=== PATIENT | female | born 1960 | race Caucasian/White ===

== ENCOUNTER 2016-12-16 09:51 | Emergency (ER) | payer MEDICAID ==
[2016-12-16] MEDS ORDERED: NORMAL SALINE 1000 ML 1,000 ML IV ONE ×2 (10:17→10:25)
[2016-12-16] MEDS ORDERED: ONDANSETRON HCL INJ/PF 4 MG/2 ML SDV IV ONE ×2 (10:17→13:46)
[2016-12-16] MEDS ORDERED: MORPHINE SULFATE 10 MG/ML INJ IV ONE ×3 (10:19→20:50)
[2016-12-16 10:29] LABS: ABSOLUTE LYMPHOCYTES (AUTO) 0.9 10^3/uL (0.5-4.7); ABSOLUTE MONOCYTES (AUTO) 0.6 10^3/uL (0.1-1.4); ABSOLUTE NEUT (AUTO) 6.6 10^3/uL (1.7-8.2); BASOPHILS % (AUTO) 0.3 % (0-2); EOSINOPHILS % (AUTO) 0.5 % (0-6); HEMATOCRIT 45.5 % (36.0-47.0); HEMOGLOBIN 15.7 g/dL (12.0-15.5); HGB HCT DIFFERENCE 1.6; LYMPHOCYTES % (AUTO) 10.7 % (13-45); MEAN CORPUSCULAR HEMOGLOBIN 31.8 pg (27.0-33.4); MEAN CORPUSCULAR HGB CONC 34.6 g/dL (32.0-36.0); MEAN CORPUSCULAR VOLUME 92 fl (80-97); MONOCYTES % (AUTO) 7.1 % (3-13); RED BLOOD COUNT 4.94 10^6/uL (3.72-5.28); RED CELL DISTRIBUTION WIDTH 13.2 % (11.5-14.0); SEGMENTED NEUTROPHILS % (AUTO) 81.4 % (42-78); WHITE BLOOD COUNT 8.1 10^3/uL (4.0-10.5)
[2016-12-16 12:07] LABS: ALANINE AMINOTRANSFERASE 50 U/L (9-52); ALBUMIN 3.8 g/dL (3.5-5.0); ALKALINE PHOSPHATASE 66 U/L (38-126); ANION GAP 14 (5-19); ASPARTATE AMINO TRANSFERASE 35 U/L (14-36); BILIRUBIN,DIRECT 0.3 mg/dL (0.0-0.4); BILIRUBIN,TOTAL 0.6 mg/dL (0.2-1.3); BLOOD UREA NITROGEN 26 mg/dL (7-20); CALCIUM 9.4 mg/dL (8.4-10.2); CARBON DIOXIDE 30 mmol/L (22-30); CHLORIDE 95 mmol/L (98-107); CREATININE RESULT 0.98 mg/dL (0.52-1.25); GLUCOSE 122 mg/dL (75-110); LIPASE 96.8 U/L (23-300); POTASSIUM 4.2 mmol/L (3.6-5.0); SODIUM 138.6 mmol/L (137-145); TOTAL PROTEIN 6.6 g/dL (6.3-8.2)
[2016-12-16] MEDS ORDERED: LIDOCAINE 1% INJ-PF (10 MG/ML) 30 ML SDV NEB ONE (13:06)
[2016-12-16] MEDS ORDERED: PHARMACY COMMUNICATION ORDER MC NR (13:15)
[2016-12-16 13:56] LABS: APPEARANCE,URINE SLIGHTLY-CLOUDY; BILIRUBIN,URINE NEGATIVE (NEGATIVE); GLUCOSE, URINE NEGATIVE (NEGATIVE); KETONES,URINE TRACE mg/dL (NEGATIVE); LEUKOCYTE ESTERASE,URINE NEGATIVE (NEGATIVE); NITRITE,URINE NEGATIVE (NEGATIVE); PROTEIN,URINE 30 mg/dL (NEGATIVE); URINE SPECIFIC GRAVITY 1.059; UROBILINOGEN,URINE NEGATIVE mg/dL (<2.0)
--- NOTE | 2016-12-16 15:22 | ER Document Report ---
ED General - General Chief Complaint: Abdominal Pain Stated Complaint: ABDOMINAL PAIN TRAVEL OUTSIDE OF THE [place] IN LAST 30 DAYS: No - HPI Patient complains to provider of: abdominal pain Notes: Patient coming in for abdominal pain. Patient is currently postop day 4 from lysis of adhesions performed at [facility]. Patient has multiple abdominal surgeries in the past due to her [employer]NA[employer] cancer. Patient states that she was doing fine discharged home after having a meal last night with Benadryl tonight with abdominal distention nausea vomiting. Patient has a history of obstructions in the past. States feels like her obstructions in the past. Patient states was passing gas to is morning is currently has not had a flatus. Patient also states small bowel movement earlier today however has not had a bowel movement in quite some time. Denies fever - Related Data Allergies/Adverse Reactions: celecoxib [From Celebrex] Allergy (Mild, Verified 12/16/16 09:58) latex [Latex] Allergy (Unknown, Verified 12/16/16 09:58) Penicillins Allergy (Unknown, Verified 12/16/16 09:58) tramadol [Tramadol] Allergy (Unknown, Verified 12/16/16 09:58) Sulfa (Sulfonamide Antibiotics) Allergy (Verified 12/16/16 09:58) steroids Adverse Reaction (Uncoded 12/16/16 09:58) "Brittle bones" Past Medical History - Social History Smoking Status: Unknown if Ever Smoked Family History: Reviewed & Not Pertinent, Other Pulmonary Medical History: Reports: Hx Asthma, Hx Bronchitis, Hx COPD Neurological Medical History: Reports: Hx Seizures Renal/ Medical History: Denies: Hx Peritoneal Dialysis Malignancy Medical History: Reports: Hx Ovarian Cancer GI Medical History: Reports: Hx Crohn's Disease Psychiatric Medical History: Reports: Hx Attention Deficit Hyperactivity Disorder, Hx Bipolar Disorder, Hx Depression Past Surgical History: Reports: Hx Abdominal Surgery - x 7, Hx Appendectomy, Hx Section, Hx Gynecologic Surgery - left ovary removed, Hx Hysterectomy - Immunizations Immunizations up to date: Yes Hx Diphtheria, Pertussis, Tetanus Vaccination: Yes Review of Systems - Review of Systems Constitutional: No symptoms reported EENT: No symptoms reported Cardiovascular: No symptoms reported Respiratory: No symptoms reported Gastrointestinal: Abdomen distended, Abdominal pain, Diarrhea, Nausea, Vomiting Genitourinary: No symptoms reported Female Genitourinary: No symptoms reported Musculoskeletal: No symptoms reported Skin: No symptoms reported Hematologic/Lymphatic: No symptoms reported Neurological/Psychological: No symptoms reported -: Yes All other systems reviewed and negative Physical Exam - Vital signs Vitals: Temp Pulse Resp BP Pulse Ox 97.8 F 120 H 24 H 175/92 H 100 12/16/16 09:55 12/16/16 09:55 12/16/16 09:55 12/16/16 09:55 12/16/16 09:55 Interpretation: Normal - General General appearance: Appears well, Alert - HEENT Head: Normocephalic, Atraumatic Eyes: Normal Pupils: PERRL - Respiratory Respiratory status: No respiratory distress Chest status: Nontender Breath sounds: Normal Chest palpation: Normal - Cardiovascular Rhythm: Regular Heart sounds: Normal auscultation Murmur: No - Abdominal Inspection: Normal Distension: Distended Bowel sounds: Normal Tenderness: Tender - Moderate tenderness with voluntary guarding. Organomegaly: No organomegaly - Back Back: Normal, Nontender - Extremities General upper extremity: Normal inspection, Nontender, Normal color, Normal ROM , Normal temperature General lower extremity: Normal inspection, Nontender, Normal color, Normal ROM , Normal temperature, Normal weight bearing. No: Luciana's sign - Neurological Neuro grossly intact: Yes Cognition: Normal Orientation: AAOx4 Raudel Coma Scale Eye Opening: Spontaneous [place] Coma Scale Verbal: Oriented [place] Coma Scale Motor: Obeys Commands Raudel Coma Scale Total: 15 Speech: Normal Motor strength normal: LUE, RUE, LLE, RLE Sensory: Normal - Psychological Associated symptoms: Normal affect, Normal mood - Skin Skin Temperature: Warm Skin Moisture: Dry Skin Color: Normal Course - Re-evaluation Re-evalutation: 12/16/16 15:20 Examination is concerning for a small bowel obstruction with the patient's history. I did perform a acute abdominal series which was read by the radiologist as an ileus versus small bowel obstruction patient did undergo a CT scan with oral contrast again was read as ileus versus partial small bowel obstruction. My concern is for still a small bowel obstruction I did discuss with our surgeon on-call who did evaluate the patient however patient is refusing to stay here at [facility] therefore I did contact her surgeon at [facility] who agreed to set the patient in transfer. Currently our nurses tried to place a NG tube however patient refused. Pain medication nausea medication and IV fluids have been ordered for the patient patient is currently waiting for transfer - Vital Signs Vital signs: Temp Pulse Resp BP Pulse Ox 97.8 F 120 H 17 167/103 H 99 12/16/16 09:55 12/16/16 09:55 12/16/16 12:01 12/16/16 12:01 12/16/16 12:01 - Laboratory Result Diagrams: 12/16/16 10:14 12/16/16 11:38 Laboratory results interpreted by me: 12/16/16 12/16/16 12/16/16 10:14 11:38 13:35 Hgb 15.7 H Seg Neutrophils % 81.4 H Lymphocytes % 10.7 L Chloride 95 L BUN 26 H Est GFR (Non-Af Amer) 59 L Glucose 122 H Urine Protein 30 H Urine Ketones TRACE H Critical Care Note - Critical Care Note Total time excluding time spent on procedures (mins): 35 Comments: Time spent Concerning for small bowel obstruction multiple evaluations and discussions with patient and transferring facility. Discharge - Discharge Clinical Impression: abdominal pain and distention, Small bowel obstruction Condition: Good Disposition: [facility]
[2016-12-16] MEDS ORDERED: LIDOCAINE 1% INJ-PF (10 MG/ML) 30 ML SDV ONE (17:35)
[2016-12-16] MEDS: ONDANSETRON HCL INJ/PF 4 MG/2 ML SDV IV PRN (17:48)
[2016-12-16] MEDS: MORPHINE SULFATE 10 MG/ML INJ IV PRN ×2 (17:48→22:01)
--- NOTE | 2016-12-16 20:49 | ER Document Report ---
Doctor's Note Notes: 12/16/16 20:49 Patient assessed the bedside after doctor Dr. proctor had left patient requesting pain medication tachycardic went to the bedside and discussed with her that additional use of pain medication could turn her small bowel obstruction to complete bowel instruction with the fact that she did not want have an NG tube. Convinced the patient to allow us to put an NG tube down at which point we can now medicate her for pain serial abdominal examinations no acute vomiting guarding rebound rigidity repeat dose of morphine still awaiting transfer to [facility].
[2016-12-16] MEDS ORDERED: DIAZEPAM 5 MG TABLET PO ONE (21:42)
[2016-12-16] MEDS ORDERED: FAMOTIDINE INJ/PF 20 MG/2 ML SDV IV ONE (23:06)
--- NOTE | 2016-12-17 00:03 | ER Document Report ---
Doctor's Note Notes: 12/17/16 00:02 Patient reassessed prior to leaving my shift she is stable has been given Pepcid morphine NG tube is in place serial abdominal examinations no acute findings still pending a bed to [facility] signed out to Dr. Gallegos
[2016-12-17] MEDS ORDERED: DIAZEPAM INJ 10 MG/2 ML DISP.SYRIN IV ONE ×2 (02:05→13:33)
[2016-12-17] MEDS ORDERED: PANTOPRAZOLE SODIUM 40 MG VIAL IV ONE (02:06)
[2016-12-17] MEDS ORDERED: POTASSI CL IV ONE (02:07)
[2016-12-17] MEDS ORDERED: [UNRECOGNIZED DRUG - OTHER] IV ONE (02:07)
[2016-12-17] MEDS ORDERED: D5 IV ONE (02:07)
[2016-12-17] MEDS: MORPHINE SULFATE 10 MG/ML INJ IV PRN ×3 (03:48→16:30)
[2016-12-17] MEDS: ONDANSETRON HCL INJ/PF 4 MG/2 ML SDV IV PRN ×4 (03:53→16:29)
[2016-12-17 08:32] LABS: ABSOLUTE BASOPHILS # (AUTO) 0.1 10^3/uL (0.0-0.2); ABSOLUTE EOSINOPHILS # (AUTO) 0.1 10^3/uL (0.0-0.6); ABSOLUTE LYMPHOCYTES (AUTO) 0.9 10^3/uL (0.5-4.7); ABSOLUTE MONOCYTES (AUTO) 0.6 10^3/uL (0.1-1.4); ABSOLUTE NEUT (AUTO) 5.7 10^3/uL (1.7-8.2); BASOPHILS % (AUTO) 0.7 % (0-2); EOSINOPHILS % (AUTO) 1.3 % (0-6); HEMATOCRIT 38.4 % (36.0-47.0); HGB HCT DIFFERENCE 0.9; LYMPHOCYTES % (AUTO) 12.3 % (13-45); MEAN CORPUSCULAR HEMOGLOBIN 31.7 pg (27.0-33.4); MEAN CORPUSCULAR HGB CONC 34.2 g/dL (32.0-36.0); MEAN CORPUSCULAR VOLUME 93 fl (80-97); MONOCYTES % (AUTO) 8.4 % (3-13); RED BLOOD COUNT 4.14 10^6/uL (3.72-5.28); RED CELL DISTRIBUTION WIDTH 12.9 % (11.5-14.0); SEGMENTED NEUTROPHILS % (AUTO) 77.3 % (42-78); WHITE BLOOD COUNT 7.4 10^3/uL (4.0-10.5)
[2016-12-17 08:39] LABS: HEMOGLOBIN 13.1 g/dL (12.0-15.5)
[2016-12-17 08:52] LABS: ALANINE AMINOTRANSFERASE 47 U/L (9-52); ALBUMIN 3.7 g/dL (3.5-5.0); ALKALINE PHOSPHATASE 56 U/L (38-126); ASPARTATE AMINO TRANSFERASE 29 U/L (14-36); BILIRUBIN,TOTAL 0.7 mg/dL (0.2-1.3); BLOOD UREA NITROGEN 20 mg/dL (7-20); CALCIUM 9.2 mg/dL (8.4-10.2); CARBON DIOXIDE 27 mmol/L (22-30); CHLORIDE 98 mmol/L (98-107); CREATININE RESULT 0.76 mg/dL (0.52-1.25); GLUCOSE 132 mg/dL (75-110); POTASSIUM 4.2 mmol/L (3.6-5.0); TOTAL PROTEIN 6.2 g/dL (6.3-8.2)
[2016-12-17 08:53] LABS: ANION GAP 11 (5-19); SODIUM 135.7 mmol/L (137-145)
[2016-12-17 16:58] VITALS: BP 128/89
== END 2016-12-17 17:05 | disposition short-term general hospital (02) ==
LOC: ER 09:51
DX: R14.0 Abdominal distension (gaseous) (principal); K56.60 Unspecified intestinal obstruction; R11.2 Nausea with vomiting, unspecified; R19.7 Diarrhea, unspecified; Z91.040 Latex allergy status; Z88.0 Allergy status to penicillin; Z88.2 Allergy status to sulfonamides; Z90.710 Acquired absence of both cervix and uterus; Z85.43 Personal history of malignant neoplasm of ovary
CPT/HCPCS: 96376; 99285; 96361; 96375; 96365; 96366; 36415; 83690; 85025; 80053; 81001; 83605; 74022 ×2; 74177; J3360; J3490 ×2; J2270 ×2; J3480; S0164; J2405 ×2; J7030; S0028

== ENCOUNTER 2018-06-16 21:46 | Emergency (ER) | payer MEDICAID ==
--- NOTE | 2018-06-16 22:49 | RADIOLOGY REPORT (SQ) ---
XR CHEST 2 VIEWS HISTORY: Cough. COMPARISON: None. FINDINGS/IMPRESSION: Normal cardiomediastinal silhouette. Lungs are clear. No pleural effusion or pneumothorax is seen. Status post ACDF. Partially visualized dextroscoliosis of the thoracolumbar spine. Old healed left clavicular fracture. Multiple old healed left-sided rib fractures.
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
[2018-06-17 00:51] VITALS: BP 126/78
== END 2018-06-17 00:54 | disposition home or self-care (01) ==
LOC: ER 21:46
DX: J44.1 Chronic obstructive pulmonary disease with (acute) exacerbation (principal); J02.9 Acute pharyngitis, unspecified; Z91.040 Latex allergy status; Z88.0 Allergy status to penicillin; Z88.2 Allergy status to sulfonamides; Z90.710 Acquired absence of both cervix and uterus
CPT/HCPCS: 71046; 99285

== ENCOUNTER 2018-10-26 07:51 | Day surgery (SDC) | payer MEDICAID ==
[~2018-10-26 07:51] MED LIST: PROPOFOL INJ 200 MG/20 ML VIAL IV ONE
[2018-10-26] MEDS ORDERED: DIPHENHYDRAMINE HCL 50 MG/ML VIAL IV PRN (09:55)
[2018-10-26] MEDS ORDERED: PROMETHAZINE HCL INJ 25 MG/1 ML VIAL IV PRN (09:55)
[2018-10-26] MEDS ORDERED: ACETAMINOPHEN 325 MG TABLET ONE (10:39)
--- NOTE | 2018-10-26 11:05 | Operative Report ---
Operative Report DATE OF SURGERY: 10/26/18 Operative Report: The risks, benefits and alternatives of the procedure including the risk of bleeding, perforation requiring surgery have been explained to the patient in detail and informed consent has been obtained. Patient is brought back to the endoscopy suite and placed in the left, lateral decubital position. Timeout was called. Propofol medication is administered. A rectal examination is done which did not reveal any masses, tears or fissures. An Olympus videoscope was introduced into the patient's rectum. The scope was then carefully advanced all the way to the cecum. The [place] cecum appears to be intact. This is identified by the usual anatomical landmarks of the ileocecal valve as well as the appendiceal office. Photodocumentation is obtained. The scope was then sequentially pulled back via the various segments of the colon including the ascending colon, hepatic flexure, transverse colon, splenic flexure, descending colon and finally into the rectosigmoid portions of the colon. Retroflexion maneuver was performed. The risks benefits and alternatives of the procedure explained to the patient in detail and informed consent is obtained.A GIF Olympus video scope was inserted into the patient's mouth and hypopharynx, the esophagus is identified intubated and insufflated, the scope was then advanced through the esophagus stomach and duodenum, retroflexion maneuver is done, the esophagus stomach and first and second portions of the duodenum examined. PREOPERATIVE DIAGNOSIS: Colorectal cancer screening. Personal history of Crohn's disease. Dysphagia POSTOPERATIVE DIAGNOSIS: Diverticulosis without any evidence of diverticulitis. Sigmoid colon polyp that was removed via snare polypectomy. Right inflammation status post biopsy rule out lymphocytic, microscopic, collagenous colitis. There does not appear to be any active Crohn's disease. Esophageal nodule status post biopsy rule out Patel's. Gastritis status post biopsy. Hiatal hernia OPERATION: Colonoscopy with snare polypectomy. Colonoscopy with biopsy. EGD with biopsy SURGEON: RODRIGUE JACKSON ANESTHESIA: LMAC TISSUE REMOVED OR ALTERED: As noted above. COMPLICATIONS: None. ESTIMATED BLOOD LOSS: None. INTRAOPERATIVE FINDINGS: As noted above. PROCEDURE: Patient tolerated the procedure well. No immediate postprocedure complications are noted. Patient discharged in good condition. Discharge date 10/26/2018. Discharge diet: Regular. Discharge activity: Regular. 2-3-week follow-up to discuss findings. Patient is instructed call the office or proceed to the emergency room should there be any further proximal questions. Wait on the pathology. 3-5-year surveillance colonoscopy.
[2018-10-26 11:38] VITALS: BP 162/90
== END 2018-10-26 11:40 | disposition home or self-care (01) ==
LOC: OROUT 07:51
PROVIDERS: ATTEND Internal Medicine Gastroenterology
DX: Z12.11 Encounter for screening for malignant neoplasm of colon (principal); K63.5 Polyp of colon; K52.9 Noninfective gastroenteritis and colitis, unspecified; K57.30 Diverticulosis of large intestine without perforation or abscess without bleeding; Z86.010 Personal history of colon polyps; K20.9 Esophagitis, unspecified; K29.50 Unspecified chronic gastritis without bleeding; K44.9 Diaphragmatic hernia without obstruction or gangrene; J44.9 Chronic obstructive pulmonary disease, unspecified; G40.909 Epilepsy, unspecified, not intractable, without status epilepticus; Z85.43 Personal history of malignant neoplasm of ovary; Z85.41 Personal history of malignant neoplasm of cervix uteri; Z90.3 Acquired absence of stomach [part of]; Z90.49 Acquired absence of other specified parts of digestive tract; Z91.040 Latex allergy status; Z79.51 Long term (current) use of inhaled steroids; Z79.899 Other long term (current) drug therapy; Z88.5 Allergy status to narcotic agent; Z88.8 Allergy status to other drugs, medicaments and biological substances
CPT/HCPCS: 43239; 45380; 45385; 88305 ×2; J3490; J2704; 813

== ENCOUNTER 2019-07-06 21:38 | Emergency (ER) | payer MEDICAID ==
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
[2019-07-06] MEDS ORDERED: CALCIUM CARBONATE 500 MG TAB.CHEW PO ONE (22:41)
--- NOTE | 2019-07-06 23:26 | RADIOLOGY REPORT (SQ) ---
EXAM DESCRIPTION: XR HAND 3 OR MORE VIEWS COMPLETED DATE/TME: 07/06/2019 22:40 CLINICAL HISTORY: 59 years, Female, Pain injury left palm possible foreign body COMPARISON: None. NUMBER OF VIEWS: TECHNIQUE: LIMITATIONS: None. FINDINGS: 3 views of the left hand were obtained. No evidence of radiopaque foreign body within the soft tissues. No fracture or dislocation. No evidence of arthritis. IMPRESSION: No evidence of radiopaque foreign body. copyright 2010 [employer]- All Rights Reserved
[2019-07-07 00:35] VITALS: BP 142/87
== END 2019-07-07 02:00 | disposition left against medical advice (07) ==
LOC: ER 21:38
DX: M79.642 Pain in left hand (principal); M79.645 Pain in left finger(s); M25.522 Pain in left elbow; M25.552 Pain in left hip; M25.561 Pain in right knee; Z91.040 Latex allergy status; Z88.0 Allergy status to penicillin; Z88.6 Allergy status to analgesic agent; Z88.2 Allergy status to sulfonamides; Z90.710 Acquired absence of both cervix and uterus
CPT/HCPCS: 99281; 73130; J3490

== ENCOUNTER 2019-07-07 03:22 | Emergency (ER) | payer MEDICAID ==
[2019-07-07 03:51] VITALS: BP 180/95
== END 2019-07-07 07:00 | disposition left against medical advice (07) ==
LOC: ER 03:22
DX: Z53.21 Procedure and treatment not carried out due to patient leaving prior to being seen by health care provider (principal)

== ENCOUNTER 2020-01-21 12:39 | Emergency (ER) | payer MEDICAID ==
[2020-01-21] MEDS ORDERED: CEPHALEXIN 500 MG CAPSULE PO ONE (12:51)
--- NOTE | 2020-01-21 12:54 | ER Document Report ---
HPI - HPI Patient complains to provider of: skin infection Time Seen by Provider: 01/21/20 12:42 Onset: Last week Onset/Duration: Persistent Context: 59-year-old female with history of staph infection, Crohn's, and mental health issues presents to the emergency department with a sore on the top of each wrist. 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 She reports she cleaned both arms with peroxide and coconut oil. She reports foul-smelling drainage from both sites. Unsure of fever. Denies vomiting diarrhea. Reports she has a history of staph infection would like a shot. Associated Symptoms: None Exacerbated by: Denies Relieved by: Denies Similar symptoms previously: No Recently seen / treated by doctor: No - REPRODUCTIVE Reproductive: DENIES: : Past Medical History - General Information source: Patient - Social History Smoking Status: Unknown if Ever Smoked Cigarette use (# per day): No Frequency of alcohol use: None Drug Abuse: None Lives with: Friend Family History: Reviewed & Not Pertinent, Other Patient has suicidal ideation: No Patient has homicidal ideation: No Pulmonary Medical History: Reports: Hx Asthma, Hx Bronchitis, Hx COPD Neurological Medical History: Reports: Hx Seizures Malignancy Medical History: Reports: Hx Ovarian Cancer GI Medical History: Reports: Hx Crohn's Disease Musculoskeletal Medical History: Reports Hx Arthritis, Reports Hx Musculoskeletal Trauma Psychiatric Medical History: Reports: Hx Attention Deficit Hyperactivity Diso rder, Hx Bipolar Disorder, Hx Depression Traumatic Medical History: Reports: Hx Fractures Past Surgical History: Reports: Hx Abdominal Surgery - x 7, Hx Appendectomy, Hx Section, Hx Gynecologic Surgery - left ovary removed, Hx Hysterectomy, Hx Orthopedic Surgery - Neck surgery - Immunizations Immunizations up to date: Yes Hx Diphtheria, Pertussis, Tetanus Vaccination: Yes Vertical Provider Document - CONSTITUTIONAL Agree With Documented VS: Yes Exam Limitations: No Limitations General Appearance: WD/WN, No Apparent Distress - INFECTION CONTROL TRAVEL OUTSIDE OF THE [place] IN LAST 30 DAYS: No - HEENT HEENT: Atraumatic, Normocephalic. negative: Conjuctival Injection - NECK Neck: Normal Inspection, Supple. negative: Lymphadenopathy-Left, Lymphadenopathy-Right - RESPIRATORY Respiratory: Breath Sounds Normal, No Respiratory Distress - CARDIOVASCULAR Cardiovascular: Regular Rate, Regular Rhythm - GI/ABDOMEN Gastrointestinal: Abdomen Soft - MUSCULOSKELETAL/EXTREMETIES Musculoskeletal/Extremeties: MAEW, FROM, Non-Tender - NEURO Level of Consciousness: Awake, Alert, Appropriate - DERM Integumentary: Warm, Dry Adult Front & Back Diagram: 1 - circular healing abrasion to dorsal wrist ~1.5 round, no drainage, no warmth, area slightly erythemic, no swelling 2 - smell dry circular healing abrasion ~ 1 cm round, surrounded with slight erythema, no swelling no warmth no drainage Course - Re-evaluation Re-evalutation: 01/21/20 13:03 59-year-old female presents with complaints of abrasions to the top of both wrist. She reports that happened when she was cleaning out some cabinets of really dirty house. She reports she did clean the sites with peroxide and apply coconut oil. Patient reports she noticed some smelly drainage from both sites. She became concerned because she has a history of staph infection. Patient is allergic to many antibiotics. She reports she cannot take Keflex although it upsets her stomach sometimes. She was instructed on the importance of monitoring site follow-up with Dr. Macias this week for recheck return for concerns. She verbalized understanding to all instructions. Discharge - Discharge Clinical Impression: Skin abrasion, History of staph infection Condition: Stable Disposition: HOME, SELF-CARE Instructions: Cephalexin ([facility]) Additional Instructions: *You have been treated for skin abrasions with history of staph infection *Take Keflex as prescribed *Monitor the sites for signs of infection such as increasing pain, redness, swelling, warmth *Keep the sites clean *Follow up with a primary care provider within 1 week for recheck *Return to the emergency department for signs of infection, concerns, needs Prescriptions: Cephalexin Monohydrate [Keflex 250 Mg Capsule] 250 mg PO QID #20 capsule Referrals: MATTHEW MACIAS DO [Primary Care Provider] - Follow up in 3-5 days
== END 2020-01-21 13:01 | disposition home or self-care (01) ==
LOC: ER 12:39
DX: S60.812A Abrasion of left wrist, initial encounter (principal); S60.811A Abrasion of right wrist, initial encounter; L08.9 Local infection of the skin and subcutaneous tissue, unspecified; W22.09XA Striking against other stationary object, initial encounter; Y93.E9 Activity, other interior property and clothing maintenance; Z85.43 Personal history of malignant neoplasm of ovary
CPT/HCPCS: 87070; 87077; 87186; 87205; 99283

== ENCOUNTER 2020-05-03 20:28 | Emergency (ER) | payer MEDICAID ==
[2020-05-03] MEDS ORDERED: KETOROLAC TROMETHAMINE 60 MG/2 ML SDV IM ONE (23:07)
[2020-05-03] MEDS ORDERED: DOXYCYCLINE HYCLATE 100 MG TABLET PO ONE (23:08)
--- NOTE | 2020-05-03 23:12 | ER Document Report ---
ED Medical Screen (RME) - General Chief Complaint: Laceration Stated Complaint: LEFT HAND LACERATION Time Seen by Provider: 05/03/20 23:01 Primary Care Provider: MATTHEW CABRERA DO [Primary Care Provider] - Follow up as needed Mode of Arrival: Ambulatory Information source: Patient Notes: HPI; 59-year-old female presents emergency room with a dog bite to her left hand between the middle and ring finger on the dorsal aspect. Patient states she was trying to break up her own dogs when she was bitten. States her vaccines are up-to-date. States dog's vaccines are up-to-date. Patient is right-handed. Bleeding is controlled. PE: Alert and oriented x3. Mild distress noted. Lungs: Auscultation without rales, rhonchi, wheezes. Heart: Regular rate and rhythm without murmurs, rubs, gallops there is a 2 cm laceration that is noted between the left middle and ring finger. Patient has decreased strength with flexion and extension of the left middle finger. Bleeding is controlled. Positive left radial pulse. Capillary refill is less than 3 seconds. I have greeted and performed a rapid initial assessment of this patient. A comprehensive ED assessment and evaluation of the patient, analysis of test results and completion of the medical decision making process will be conducted by additional ED providers. I have specifically instructed the patient or family members with the patient to immediately return to any nursing staff should anything change in the patient's condition or with their chief complaint. TRAVEL OUTSIDE OF THE [place] IN LAST 30 DAYS: No - Related Data Allergies/Adverse Reactions: celecoxib [From Celebrex] Allergy (Mild, Verified 01/21/20 12:43) latex [Latex] Allergy (Unknown, Verified 01/21/20 12:43) Penicillins Allergy (Unknown, Verified 01/21/20 12:43) tramadol [Tramadol] Allergy (Unknown, Verified 01/21/20 12:43) metaxalone [From Skelaxin] Allergy (Verified 01/21/20 12:43) Sulfa (Sulfonamide Antibiotics) Allergy (Verified 01/21/20 12:43) steroids Adverse Reaction (Uncoded 01/21/20 12:43) "Brittle bones" Past Medical History Pulmonary Medical History: Reports: Hx Asthma, Hx Bronchitis, Hx COPD Neurological Medical History: Reports: Hx Seizures Malignancy Medical History: Reports: Hx Ovarian Cancer GI Medical History: Reports: Hx Crohn's Disease Musculoskeltal Medical History: Reports Hx Arthritis, Reports Hx Musculoskeletal Trauma Psychiatric Medical History: Reports: Hx Attention Deficit Hyperactivity Disorder, Hx Bipolar Disorder, Hx Depression Traumatic Medical History: Reports: Hx Fractures Past Surgical History: Reports: Hx Abdominal Surgery - x 7, Hx Appendectomy, Hx Section, Hx Gynecologic Surgery - left ovary removed, Hx Hysterectomy, Hx Orthopedic Surgery - Neck surgery - Immunizations Immunizations up to date: Yes Hx Diphtheria, Pertussis, Tetanus Vaccination: Yes Physical Exam - Vital signs Vitals: Temp Pulse Resp BP Pulse Ox 98.9 F 92 16 132/74 H 99 05/03/20 22:08 05/03/20 22:08 05/03/20 22:08 05/03/20 22:08 05/03/20 22:08 Course - Vital Signs Vital signs: Temp Pulse Resp BP Pulse Ox 98.9 F 92 16 132/74 H 99 05/03/20 22:08 05/03/20 22:08 05/03/20 22:08 05/03/20 22:08 05/03/20 22:08 Doctor's Discharge - Discharge Referrals: MATTHEW CABRERA DO [Primary Care Provider] - Follow up as needed
[2020-05-04] MEDS ORDERED: METRONIDAZOLE 500 MG TABLET PO ONE (02:47)
[2020-05-04] MEDS ORDERED: ONDANSETRON 4 MG TAB.RAPDIS PO ONE (02:47)
[2020-05-04] MEDS ORDERED: MORPHINE SULFATE 10 MG/ML INJ IM ONE (02:47)
[2020-05-04] MEDS ORDERED: LIDOCAINE 1% INJ-PF (10 MG/ML) 30 ML SDV INJ ONE (02:48)
--- NOTE | 2020-05-04 02:50 | ER Document Report ---
ED Animal Bite - General Chief Complaint: Dog Bite Stated Complaint: LEFT HAND LACERATION Time Seen by Provider: 05/03/20 23:01 Primary Care Provider: MATTHEW CABRERA DO [Primary Care Provider] - Follow up as needed Mode of Arrival: Ambulatory Notes: Patient is a 59-year-old female that comes emergency department for chief complaint of dog bite to the left hand. Bite is in between the third and fourth fingers near the webbing. She states that this was her personal pet, dog is vaccinated, patient states her vaccinations are up-to-date as well. Patient denies any other injuries or any other complaints. TRAVEL OUTSIDE OF THE [place] IN LAST 30 DAYS: No - Related Data Allergies/Adverse Reactions: celecoxib [From Celebrex] Allergy (Mild, Verified 01/21/20 12:43) latex [Latex] Allergy (Unknown, Verified 01/21/20 12:43) Penicillins Allergy (Unknown, Verified 01/21/20 12:43) tramadol [Tramadol] Allergy (Unknown, Verified 01/21/20 12:43) metaxalone [From Skelaxin] Allergy (Verified 01/21/20 12:43) Sulfa (Sulfonamide Antibiotics) Allergy (Verified 01/21/20 12:43) steroids Adverse Reaction (Uncoded 01/21/20 12:43) "Brittle bones" Home Medications: pt not reporting meds Past Medical History - General Information source: Patient - Social History Smoking Status: Never Smoker Frequency of alcohol use: None Drug Abuse: None Lives with: Family Family History: Reviewed & Not Pertinent, Other Patient has homicidal ideation: No Pulmonary Medical History: Reports: Hx Asthma, Hx Bronchitis, Hx COPD Neurological Medical History: Reports: Hx Seizures Malignancy Medical History: Reports: Hx Ovarian Cancer GI Medical History: Reports: Hx Crohn's Disease Musculoskeletal Medical History: Reports Hx Arthritis, Reports Hx Musculos keletal Trauma Psychiatric Medical History: Reports: Hx Attention Deficit Hyperactivity Disorder, Hx Bipolar Disorder, Hx Depression Traumatic Medical History: Reports: Hx Fractures Past Surgical History: Reports: Hx Abdominal Surgery - x 7, Hx Appendectomy, Hx Section, Hx Gynecologic Surgery - left ovary removed, Hx Hysterectomy, Hx Orthopedic Surgery - Neck surgery - Immunizations Immunizations up to date: Yes Hx Diphtheria, Pertussis, Tetanus Vaccination: Yes Review of Systems - Review of Systems Constitutional: No symptoms reported EENT: No symptoms reported Cardiovascular: No symptoms reported Respiratory: No symptoms reported Gastrointestinal: No symptoms reported Genitourinary: No symptoms reported Female Genitourinary: No symptoms reported Musculoskeletal: See HPI Skin: See HPI Hematologic/Lymphatic: No symptoms reported Neurological/Psychological: No symptoms reported Physical Exam - Vital signs Vitals: Temp Pulse Resp BP Pulse Ox 98.9 F 92 16 132/74 H 99 05/03/20 22:08 05/03/20 22:08 05/03/20 22:08 05/03/20 22:08 05/03/20 22:08 - Notes Notes: GENERAL: Alert, interacts well. No acute distress. HEAD: Normocephalic, atraumatic. EYES: Pupils equal, round, and reactive to light. Extraocular movements intact. ENT: Oral mucosa moist, tongue midline. Oropharynx unremarkable. Airway patent. NECK: Full range of motion. Supple. Trachea midline. No lymphadenopathy. LUNGS: Clear to auscultation bilaterally, no wheezes, rales, or rhonchi. No respiratory distress. Non-tender chest wall. HEART: Regular rate and rhythm. No murmur ABDOMEN: Soft, non-tender. Non-distended. EXTREMITIES: 2 cm linear vertical laceration between the third and fourth digits in the web over the dorsal aspect of the left hand. Normal range of motion with full strength against resistance in flexion and extension, normal cap refill and sensation, normal exam otherwise. Wound is easily explored and it is only partial-thickness. Remaining hand exam unremarkable with no bony tenderness. BACK: no cervical, thoracic, lumbar midline tenderness. No saddle anesthesia, normal distal neurovascular exam. Moves all extremities in full range of motion. NEUROLOGICAL: Alert and oriented x3. Normal speech. Cranial nerves II through XII grossly intact. Strength 5/5 in all extremities. PSYCH: Normal affect, normal mood. SKIN: Warm, dry, normal turgor. No rashes or lesions noted. Course - Re-evaluation Re-evalutation: Triage note noted that patient had decreased strength in flexion and extension of the third and fourth digits, however patient for me was able to make a full fist, extend completely, and has good strength, sensation, capillary refill, and pulses. No deficits are noted. Wound is easily explored and there does not appear to be any tendon injury, there is no heavily bleeding vessel, there is no bony tenderness or noted soft tissue swelling. No x-ray was performed but after discussion with patient (in addition to her unfortunately long wait tonight) x- ray was deferred. Patient is allergic to penicillin and therefore will be placed on doxycycline and Flagyl per up-to-date recommendations. Discussed care, follow-up, and return precautions. Patient states understanding and agreement. - Vital Signs Vital signs: Temp Pulse Resp BP Pulse Ox 98.0 F 69 18 178/86 H 100 05/04/20 04:54 05/04/20 04:54 05/04/20 04:54 05/04/20 04:54 05/04/20 04:54 Procedures - Laceration/Wound Repair left hand Wound length (cm): 2 Wound's Depth, Shape: Linear Anesthetic type: 1% Lidocaine Volume Anesthetic (mLs): 2 Wound explored: Clean, No foreign body removed Irrigated w/ Saline (mLs): 100 Wound Repaired With: Sutures Suture Size/Type: 5:0, Ethilon Number of Sutures: 2 - partial closer of edges Post-procedure wound care: Sterile dressing applied Post-procedure NV exam normal: Yes Complications: No Discharge - Discharge Clinical Impression: Dog bite Qualifiers: Encounter type: initial encounter Qualified Code(s): W54.0XXA - Bitten by dog, initial encounter Hand laceration Qualifiers: Encounter type: initial encounter Foreign body presence: without foreign body Laterality: left Qualified Code(s): S61.412A - Laceration without foreign body of left hand, initial encounter Condition: Stable Disposition: HOME, SELF-CARE Additional Instructions: The wound has been approximated but not closed because of the risk of infection. Keep the area clean, keep topical antibiotic dressing over the area, clean with soap and water. Take the antibiotics as prescribed to completion, I recommend an [id number] probiotic while you are taking these. Follow-up with primary care. Return if you worsen including developing signs of infection such as pain, discolored drainage, swelling, spreading redness, fever, or any other concerning symptoms. Prescriptions: Metronidazole [Flagyl 500 mg Tablet] 500 mg PO TID 7 Days #21 tablet Doxycycline Hyclate [Vibramycin 100 mg Tablet] 100 mg PO BID 10 Days #20 tablet Referrals: MATTHEW CABRERA DO [Primary Care Provider] - Follow up as needed
[2020-05-04] MEDS ORDERED: DOXYCYCLINE HYCLATE 100 MG TABLET PO ONE (03:01)
[2020-05-04 04:56] VITALS: BP 178/86
== END 2020-05-04 04:56 | disposition home or self-care (01) ==
LOC: ER 20:28
DX: S61.452A Open bite of left hand, initial encounter (principal); W54.0XXA Bitten by dog, initial encounter; Y93.89 Activity, other specified; Y92.009 Unspecified place in unspecified non-institutional (private) residence as the place of occurrence of the external cause; Z88.8 Allergy status to other drugs, medicaments and biological substances; Z91.040 Latex allergy status; Z88.0 Allergy status to penicillin; Z88.6 Allergy status to analgesic agent; Z88.2 Allergy status to sulfonamides; J44.9 Chronic obstructive pulmonary disease, unspecified; Z85.43 Personal history of malignant neoplasm of ovary
CPT/HCPCS: 99284; 96372; 12001; J3490 ×3; J1885; S0119; J2270

== ENCOUNTER 2020-05-05 16:25 | Emergency (ER) | payer MEDICAID ==
[2020-05-05 16:44] VITALS: BP 151/79
--- NOTE | 2020-05-05 18:09 | ER Document Report ---
HPI - HPI Time Seen by Provider: 05/05/20 17:58 Pain Level: Denies Notes: 59-year-old female with history of ADHD and bipolar presenting today for a wound check from a dog bite that occurred on Wednesday. She was seen on Wednesday and had 2 sutures placed and was started on doxycycline and flagyl. Patient had concerns that it was infected because she woke up in sweats this AM and bought a thermometer and her temperature was 94. She has been taking her medications as prescribed. Her temperature is currently 98.9. She is not tachycardic. No increased work of breathing. Patient is also very concerned that she lost her discharge paperwork and isn't certain how to keep the wound clean and how often to clean the wound. - CONSTITUTIONAL Constitutional: DENIES: Fever, Chills - REPRODUCTIVE Reproductive: DENIES: : Past Medical History - Social History Smoking Status: Never Smoker Chew tobacco use (# tins/day): No Frequency of alcohol use: None Drug Abuse: None Family History: Reviewed & Not Pertinent, Other Patient has homicidal ideation: No Pulmonary Medical History: Reports: Hx Asthma, Hx Bronchitis, Hx COPD Neurological Medical History: Reports: Hx Seizures Malignancy Medical History: Reports: Hx Ovarian Cancer GI Medical History: Reports: Hx Crohn's Disease Musculoskeletal Medical History: Reports Hx Arthritis, Reports Hx Musculoskeletal Trauma Psychiatric Medical History: Reports: Hx Attention Deficit Hyperactivity Disorder, Hx Bipolar Disorder, Hx Depression Traumatic Medical History: Reports: Hx Fractures Past Surgical History: Reports: Hx Abdominal Surgery - x 7, Hx Appendectomy, Hx Section, Hx Gynecologic Surgery - left ovary removed, Hx Hysterectomy, Hx Orthopedic Surgery - Neck surgery - Immunizations Immunizations up to date: Yes Hx Diphtheria, Pertussis, Tetanus Vaccination: Yes Vertical Provider Document - INFECTION CONTROL TRAVEL OUTSIDE OF THE [place] IN LAST 30 DAYS: No - HEENT HEENT: Atraumatic - NECK Neck: Normal Inspection - RESPIRATORY Respiratory: Breath Sounds Normal, No Respiratory Distress - DERM Notes: 2 cm laceration in the web spacing of the left 3rd and 4th digits with 2 sutures to help approximate wound. Wound has no erythema or associated warmth. No pus. Is mildly tender to deep palpation. 2+ capillary refill. Good radial pulses. Good sensation to light touch. Course - Re-evaluation Re-evalutation: 05/05/20 18:48 Patient's temperature is 98.9. She is not tachycardic. Her wound is not infected at this time. There is no erythema, warmth, discharge, swelling. The wound is not infected in appearance at this time. It is healing appropriately. I recommend the sutures stay in place for a total of 5 days. She may return to an urgent care, primary care or emergency department for removal or sutures. Return precautions to the emergency department include fever, chills, erythema, worsening tenderness, swelling, purulent discharge. X-ray shows no acute abnormalities. No fractures. No bony involvement. She can use Tylenol or ibuprofen for pain. Keep the area clean and dry. Recommend she cleans area with soap and water twice a day. Also recommend use of topical antibiotic ointment. Please continue to take your medications as prescribed. Patient acknowledges and verbalizes understanding of instructions and plan. All questions answered. - Vital Signs Vital signs: Temp Pulse Resp BP Pulse Ox 98.9 F 76 16 151/79 H 99 05/05/20 16:42 05/05/20 16:42 05/05/20 16:42 05/05/20 16:42 05/05/20 16:42 Discharge - Discharge Clinical Impression: Dog bite Qualifiers: Encounter type: subsequent encounter Qualified Code(s): W54.0XXD - Bitten by dog, subsequent encounter Hand laceration Qualifiers: Encounter type: subsequent encounter Foreign body presence: without foreign body Laterality: left Qualified Code(s): S61.412D - Laceration without foreign body of left hand, subsequent encounter Condition: Stable Disposition: HOME, SELF-CARE Instructions: Antibiotic Ointment Protection ([facility]), Laceration Care ([facility]), Prophylactic Antibiotic ([facility]), Soap Cleansing ([facility]) Additional Instructions: Your wound does not appear to be infected at this time. Please continue take your medication as prescribed. Please keep the area clean and dry. Please clean the area with soap and water twice a day. Please continue to evaluate for signs of infection to include fever, chills, worsening tenderness, swelling, redness, discharge. Please have sutures removed in 5 days from the initial placement of the sutures (05/09). This can be done at your primary care, an urgent care, or the emergency department. Please return to the emergency department for worsening symptoms or development of new symptoms. Referrals: MATTHEW CABRERA, [Primary Care Provider] - Follow up as needed
--- NOTE | 2020-05-05 18:45 | RADIOLOGY REPORT (SQ) ---
EXAM DESCRIPTION: HAND LEFT 3 VIEWS IMAGES COMPLETED DATE/TIME: 05/05/2020 5:37 pm REASON FOR STUDY: dog bite between 11/14 webbing. COMPARISON: None. EXAM PARAMETERS: NUMBER OF VIEWS: Three views. TECHNIQUE: AP, lateral and oblique radiographic images acquired of the left hand. LIMITATIONS: None. FINDINGS: MINERALIZATION: Normal. BONES: No acute fracture or dislocation. No worrisome bone lesions. JOINTS: No effusions. SOFT TISSUES: No soft tissue swelling. No foreign body. OTHER: No other significant finding. IMPRESSION: No radiographic abnormality of the left hand. TECHNICAL DOCUMENTATION: JOB ID: [id number] 2010 [employer]- All Rights Reserved Reading location - IP/workstation name: [email or web address]
== END 2020-05-05 19:10 | disposition home or self-care (01) ==
LOC: ER 16:25
DX: S61.452D Open bite of left hand, subsequent encounter (principal); W54.0XXD Bitten by dog, subsequent encounter; R61 Generalized hyperhidrosis; J44.9 Chronic obstructive pulmonary disease, unspecified; Z85.43 Personal history of malignant neoplasm of ovary
CPT/HCPCS: 99283

== ENCOUNTER → 2020-08-12 | Outpatient (CLI) | payer MEDICAID ==
[2020-08-12 14:04] LABS: A TYPE INFLUENZA AG NEGATIVE (NEGATIVE); B INFLUENZA AG NEGATIVE (NEGATIVE)
[2020-08-12 16:55] VITALS: BP 167/84
--- NOTE | 2020-08-12 16:55 | ER RDC ASSESSMENT REPORT ---
Intake - In the Last 14 days Have you traveled outside [place]?: Yes Have you been in close contact with someone CONFIRMED: Yes Worked in Healthcare?: No - Symptoms Subjective Fever([place] feverish): Yes Chills: Yes Muscule Aches: Yes Runny Nose: Yes Sore Throat: Yes Cough (New or worsening chronic cough): Yes Shortness of breath: Yes Nausea or Vomiting: Yes Headache: Yes Abdominal Pain: Yes - Do you have any of the following Chronic lung disease: Asthma or emphysema or COPD: Yes Chronic Lung Disease Comment: History of COPD and asthma Cystic Fibrosis: No Diabetes: No High Blood Pressure: Yes Cardiovascular Disease: Yes Chronic Kidney Disease: No Chronic Liver Disease: No Chronic blood disorder like Sickle Cell Disease: No Weak immune system due to disease or medication: No Neurologic condition that limits movement: No Developmental delay - Moderate to Severe: No Recent (within past 2 weeks) or current : No Morbid Obesity (>100 pounds over ideal weight): No Obesity Comment: Height 4 feet 6 inches weight 90 pounds Other Comment: History of Crohn's disease - Objective Temperature: 98.0 F Pulse Rate: 83 Respiratory Rate: 16 Blood Pressure: 167/84 O2 Sat by Pulse Oximetry: 99 Objective: Given above, testing performed: If Testing Performed: Test Specimen Type Sent to General - General Information source: Patient Notes: Patient here at [facility] for Covid testing patient reports had possible exposure to Covid through family friend. Patient started to have symptoms several days ago which included feeling feverish chills muscle aches runny nose sore throat cough shortness of breath nausea headache abdominal pain. Patient denies any fever today. Patient's PCP is Dr. Macias at [facility] and will follow up with him later today. - Related Data Allergies/Adverse Reactions: celecoxib [From Celebrex] Allergy (Mild, Verified 05/05/20 17:49) latex [Latex] Allergy (Unknown, Verified 05/05/20 17:49) Penicillins Allergy (Unknown, Verified 05/05/20 17:49) tramadol [Tramadol] Allergy (Unknown, Verified 05/05/20 17:49) metaxalone [From Skelaxin] Allergy (Verified 05/05/20 17:49) Sulfa (Sulfonamide Antibiotics) Allergy (Verified 05/05/20 17:49) steroids Adverse Reaction (Uncoded 05/05/20 17:49) "Brittle bones" Past Medical History - General Information source: Patient - Social History Smoking Status: Never Smoker Family History: Reviewed & Not Pertinent, Other - Past Medical History Cardiac Medical History: Denies: Hx Coronary Artery Disease, Hx Heart Attack, Hx Hypertension Pulmonary Medical History: Reports: Hx Asthma, Hx Bronchitis, Hx COPD Denies: Hx Pneumonia Neurological Medical History: Reports: Hx Seizures. Denies: Hx Cerebrovascular Accident Renal/ Medical History: Denies: Hx Peritoneal Dialysis Malignancy Medical History: Reports: Hx Ovarian Cancer GI Medical History: Reports: Hx Crohn's Disease Musculoskeletal Medical History: Reports Hx Arthritis, Reports Hx Musculoskeletal Trauma Psychiatric Medical History: Reports: Hx Attention Deficit Hyperactivity Disorder, Hx Bipolar Disorder, Hx Depression Traumatic Medical History: Reports: Hx Fractures Past Surgical History: Reports: Hx Abdominal Surgery - x 7, Hx Appendectomy, Hx Section, Hx Gynecologic Surgery - left ovary removed, Hx Hysterectomy, Hx Orthopedic Surgery - Neck surgery Physical Exam - General General appearance: Appears well, Alert In distress: None Notes: PHYSICAL EXAMINATION: GENERAL: Well-appearing and in no acute distress. HEAD: Atraumatic, normocephalic. EYES: sclera anicteric, conjunctiva are normal. ENT: nares patent. Moist mucous membranes. NECK: Normal range of motion, supple without lymphadenopathy LUNGS: CTAB and equal. No wheezes rales or rhonchi. Respirations even and unlabored lung sounds clear. HEART: Regular rate and rhythm without murmurs ABDOMEN: Soft, nontender, normal bowel sounds, no guarding. EXTREMITIES: Normal range of motion, no pitting edema. No cyanosis. NEUROLOGICAL: Cranial nerves grossly intact. Normal speech. Normal gait. PSYCH: Normal mood, normal affect. SKIN: Warm, Dry, normal turgor, no rashes or lesions noted Diagnostic Results Laboratory Results: 08/12/20 11:05 Throat Throat Culture - Pending Influenza A (Rapid) NEGATIVE (NEGATIVE) 08/12/20 11:05 Influenza B (Rapid) NEGATIVE (NEGATIVE) 08/12/20 11:05 Group A Strep Rapid NEGATIVE (NEGATIVE) 08/12/20 11:05 Patient informed of negative rapid strep and negative rapid flu results. Pending strep culture pending Covid testing results. Patient provided instructions regarding Covid to include: As a person under investigation for Covid 19, the [facility] of Health and Human Services, division of public health advises you to adhere to the following guidance until your test results are reported to you. If your test result is positive, you will receive additional information from your provider and your local health department at that time. Remain at home until you are cleared by the health provider or public health authorities. Keep a log of visitors to your home, notify any visitors to your home of your isolation status. If you plan to move to a new address or leave the county, notify the local health department in your County. Call your doctor or seek care if you have an urgent medical need. Before seeking medical care, call ahead to get instructions from the provider before arriving at the medical office clinic or hospital. Notify them that you are being tested for the virus that causes Covid 19 so that arrangements can be made, as necessary, to prevent transmission to others in the healthcare setting. Next, notify the local health department in your county. If a medical emergency arises and you need to call 911, inform the first responders that you are being tested for the virus that causes Covid 19. Next, notify the local health department in your [facility]. Patient Education/Counseling Counseling/Education: Patient presents with upper respiratory symptoms worrisome for possible Covid 19. Patient does not have emergency worring symptoms such as difficulty breathing, shortness of breath, chest pain, pressure, confusion or cyanosis. Patient appears suitable for discharge. Patient instructed to follow-up with PCP Dr. Colleen sloan. To ED for persistent or worsening symptoms. Patient's vital signs are stable and patient is nontoxic in appearance. Good return precautions have been discussed with patient, patient verbalized understanding and is agreeable with discharge plan of care at this time. RDC Discharge - Discharge Clinical Impression: Flu-like symptoms, Encounter for screening laboratory testing for COVID-19 virus Upper respiratory infection Qualifiers: URI type: unspecified URI Qualified Code(s): J06.9 - Acute upper respiratory infection, unspecified Condition: Stable Disposition: Home; Selfcare
== END ==
LOC: RDC 10:47
PROVIDERS: ATTEND Nurse Practitioner Family
DX: J06.9 Acute upper respiratory infection, unspecified (principal); Z20.828 Contact with and (suspected) exposure to other viral communicable diseases; R50.9 Fever, unspecified; J02.9 Acute pharyngitis, unspecified; R06.02 Shortness of breath; R05 Cough; R09.89 Other specified symptoms and signs involving the circulatory and respiratory systems; R11.0 Nausea; R51.9 Headache, unspecified; R10.9 Unspecified abdominal pain; M79.10 Myalgia, unspecified site; J44.9 Chronic obstructive pulmonary disease, unspecified; Z88.0 Allergy status to penicillin; F90.9 Attention-deficit hyperactivity disorder, unspecified type; Z86.73 Personal history of transient ischemic attack (TIA), and cerebral infarction without residual deficits; Z86.69 Personal history of other diseases of the nervous system and sense organs; Z88.1 Allergy status to other antibiotic agents; Z88.6 Allergy status to analgesic agent; Z88.8 Allergy status to other drugs, medicaments and biological substances; Z91.040 Latex allergy status
CPT/HCPCS: 87070; 87880; 87635; 87804; 99201; 99211; C9803

== ENCOUNTER 2020-10-08 17:59 | Emergency (ER) | payer MEDICAID ==
--- NOTE | 2020-10-08 18:38 | ER Document Report ---
ED Medical Screen (RME) - General Stated Complaint: RIGHT HAND LACERATION Time Seen by Provider: 10/08/20 18:31 Primary Care Provider: MATTHEW CABRERA DO [Primary Care Provider] - Follow up as needed TRAVEL OUTSIDE OF THE [place] IN LAST 30 DAYS: No - HPI Notes: 10/08/20 18:35 60-year-old female presents to the emergency room today for right hand laceration that she sustained while she was walking up a hill, tripped and a conde lacerated her hand approximately an hour ago. Tetanus is up-to-date. Reports pain is 2/5, constant throbbing. No [id number] medications have been tried. Patient went to urgent care but was advised due to having complex laceration she did have to go to the emergency room. Patient's blood pressure in triage is 196/110. Patient denies having a history of hypertension. No active bleeding. Denies any numbness or tingling in her hand I have greeted and performed a rapid initial assessment of this patient. A comprehensive ED assessment and evaluation of the patient, analysis of test results and completion of the medical decision making process will be conducted by additional ED providers. PHYSICAL EXAMINATION: GENERAL: Well-appearing, well-nourished and in no acute distress. CV: s1, s2 regular LUNGS: No respiratory distress Musculoskeletal: Normal range of motion NEUROLOGICAL: Normal speech, normal gait. SKIN: Warm, Dry, normal turgor, no rashes or lesions noted. "V" 2cm laceration to ruelas distal aspect of right hand. 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 Their evaluation, treatment and testing was consistent with current guidelines for patients who present with complaints or symptoms and may be related to COVID-19. 10/08/20 18:35 - Related Data Allergies/Adverse Reactions: celecoxib [From Celebrex] Allergy (Mild, Verified 05/05/20 17:49) latex [Latex] Allergy (Unknown, Verified 05/05/20 17:49) Penicillins Allergy (Unknown, Verified 05/05/20 17:49) tramadol [Tramadol] Allergy (Unknown, Verified 05/05/20 17:49) metaxalone [From Skelaxin] Allergy (Verified 05/05/20 17:49) Sulfa (Sulfonamide Antibiotics) Allergy (Verified 05/05/20 17:49) steroids Adverse Reaction (Uncoded 05/05/20 17:49) "Brittle bones" Past Medical History - Past Medical History Cardiac Medical History: Denies: Hx Coronary Artery Disease, Hx Heart Attack, Hx Hypertension Pulmonary Medical History: Reports: Hx Asthma, Hx Bronchitis, Hx COPD Denies: Hx Pneumonia Neurological Medical History: Reports: Hx Seizures. Denies: Hx Cerebrovascular Accident Renal/ Medical History: Denies: Hx Peritoneal Dialysis Malignancy Medical History: Reports: Hx Ovarian Cancer GI Medical History: Reports: Hx Crohn's Disease Musculoskeltal Medical History: Reports Hx Arthritis, Reports Hx Musculoskeletal Trauma Psychiatric Medical History: Reports: Hx Attention Deficit Hyperactivity Disorder, Hx Bipolar Disorder, Hx Depression Traumatic Medical History: Reports: Hx Fractures Past Surgical History: Reports: Hx Abdominal Surgery - x 7, Hx Appendectomy, Hx Section, Hx Gynecologic Surgery - left ovary removed, Hx Hysterectomy, Hx Orthopedic Surgery - Neck surgery - Immunizations Immunizations up to date: Yes Hx Diphtheria, Pertussis, Tetanus Vaccination: Yes Physical Exam - Vital signs Vitals: Temp Pulse Resp BP Pulse Ox 98.0 F 83 15 196/110 H 97 10/08/20 18:09 10/08/20 18:09 10/08/20 18:09 10/08/20 18:09 10/08/20 18:09 Course - Vital Signs Vital signs: Temp Pulse Resp BP Pulse Ox 98.0 F 83 15 196/110 H 97 10/08/20 18:09 10/08/20 18:09 10/08/20 18:09 10/08/20 18:09 10/08/20 18:09 Doctor's Discharge - Discharge Referrals: MATTHEW CABRERA DO [Primary Care Provider] - Follow up as needed
[2020-10-08] MEDS ORDERED: DIPH/PERTUSS(ACELL)/TETANUS VAC/PF 0.5 ML SYR (>=10YO) IM ONE (18:52)
[2020-10-08] MEDS ORDERED: LIDOCAINE 1%/EPINEPHRINE INJ 20 ML VIAL INJ ONE (18:52)
--- NOTE | 2020-10-08 19:06 | RADIOLOGY REPORT (SQ) ---
EXAM DESCRIPTION: HAND RIGHT 2 VIEWS IMAGES COMPLETED DATE/TIME: 10/08/2020 6:52 pm REASON FOR STUDY: r hand lac on car keys, r/o fb and fx COMPARISON: None. EXAM PARAMETERS: NUMBER OF VIEWS: Three views. TECHNIQUE: AP, lateral and oblique radiographic images acquired of the right hand. LIMITATIONS: None. FINDINGS: MINERALIZATION: Normal. BONES: No acute fracture or dislocation. No worrisome bone lesions. JOINTS: No effusions. SOFT TISSUES: No soft tissue swelling. No foreign body. OTHER: There is compression plate on the 4th metacarpal with 3 screws. IMPRESSION: NEGATIVE STUDY OF THE RIGHT HAND. NO RADIOGRAPHIC EVIDENCE OF ACUTE INJURY. TECHNICAL DOCUMENTATION: JOB ID: [id number] 2010 [employer]- All Rights Reserved Reading location - IP/workstation name: [email or web address]
--- NOTE | 2020-10-08 19:29 | ER Document Report ---
ED Wound - General Chief Complaint: Laceration Stated Complaint: RIGHT HAND LACERATION Time Seen by Provider: 10/08/20 18:31 Primary Care Provider: MATTHEW CABRERA DO [Primary Care Provider] - Follow up as needed Notes: CHIEF COMPLAINT: Right hand laceration HPI: 60-year-old female presenting for evaluation of laceration to the palm of the right hand. Patient was going up a hill tripped and fell with keys in her h and which cut her hand. Denies new numbness or tingling in the fingertips not up-to-date on tetanus vaccination denies other injuries or complaints ROS: See HPI - all other systems were reviewed and are otherwise negative Constitutional: no fever Integumentary: + Laceration Allergy: no hives Musculoskeletal: Positive extremity pain or swelling Neurological: no numbness/tingling, no weakness MEDICATIONS: I agree with the patient medications as charted by the RN. ALLERGIES: I agree with the allergies as charted by the RN. PAST MEDICAL HISTORY/PAST SURGICAL HISTORY: Reviewed and agree as charted by RN. SOCIAL HISTORY: Reviewed and agree as charted by RN. FAMILY HISTORY: No significant familial comorbid conditions directly related to patient complaint EXAM: Reviewed vital signs as charted by RN. CONSTITUTIONAL: Alert and oriented and responds appropriately to questions. Well-appearing; well-nourished HEAD: Normocephalic; atraumatic EYES: Conjunctivae clear, sclerae non-icteric ENT: normal nose; no rhinorrhea; moist mucous membranes NECK: Supple without meningismus CARD: symmetric distal pulses RESP: Normal chest excursion without splinting or tachypnea ABD/GI: non-distended. BACK: The back appears normal EXT: Normal ROM in all joints; no cyanosis, no effusions, no edema. There is bruising to the palm of the hand with a 3 cm jagged laceration noted on the palm of the hand between the thenar and hypothenar spaces. No visible tendon injury able to fully flex and extend the fingers of the right hand as well as abduct the thumb. No visible or palpable foreign body SKIN: Normal color for age and race; warm; dry; good turgor NEURO: Moves all extremities equally; Motor and sensory function intact PSYCH: The patient's mood and manner are appropriate. Grooming and personal hygiene are appropriate. MDM: 60-year-old female with a laceration to the palm of the right hand. We will clean and irrigate the wound and plan to close the wound. TRAVEL OUTSIDE OF THE [place] IN LAST 30 DAYS: No - Related Data Allergies/Adverse Reactions: celecoxib [From Celebrex] Allergy (Mild, Verified 05/05/20 17:49) latex [Latex] Allergy (Unknown, Verified 05/05/20 17:49) Penicillins Allergy (Unknown, Verified 05/05/20 17:49) tramadol [Tramadol] Allergy (Unknown, Verified 05/05/20 17:49) metaxalone [From Skelaxin] Allergy (Verified 05/05/20 17:49) Sulfa (Sulfonamide Antibiotics) Allergy (Verified 05/05/20 17:49) steroids Adverse Reaction (Uncoded 05/05/20 17:49) "Brittle bones" Past Medical History - Social History Smoking Status: Former Smoker Family History: Reviewed & Not Pertinent, Other - Past Medical History Cardiac Medical History: Denies: Hx Coronary Artery Disease, Hx Heart Attack, Hx Hypertension Pulmonary Medical History: Reports: Hx Asthma, Hx Bronchitis, Hx COPD Denies: Hx Pneumonia Neurological Medical History: Reports: Hx Seizures. Denies: Hx Cerebrovascular Accident Renal/ Medical History: Denies: Hx Peritoneal Dialysis Malignancy Medical History: Reports: Hx Ovarian Cancer GI Medical History: Reports: Hx Crohn's Disease Musculoskeletal Medical History: Reports Hx Arthritis, Reports Hx Musculoskeletal Trauma Psychiatric Medical History: Reports: Hx Attention Deficit Hyperactivity Disorder, Hx Bipolar Disorder, Hx Depression Traumatic Medical History: Reports: Hx Fractures Past Surgical History: Reports: Hx Abdominal Surgery - x 7, Hx Appendectomy, Hx Section, Hx Gynecologic Surgery - left ovary removed, Hx Hysterectomy, Hx Orthopedic Surgery - Neck surgery - Immunizations Immunizations up to date: Yes Hx Diphtheria, Pertussis, Tetanus Vaccination: Yes Physical Exam - Vital signs Vitals: Temp Pulse Resp BP Pulse Ox 98.0 F 83 15 196/110 H 97 10/08/20 18:09 10/08/20 18:09 10/08/20 18:09 10/08/20 18:09 10/08/20 18:09 Course - Re-evaluation Re-evalutation: 10/08/20 19:28 Patient was noted to be mildly hypertensive likely from discomfort. Nursing is rechecked the diastolic pressure which is now 100. I discussed this with the patient will follow this up with her PCP - Vital Signs Vital signs: Temp Pulse Resp BP Pulse Ox 98.0 F 83 15 180/100 H 97 10/08/20 18:09 10/08/20 18:09 10/08/20 18:09 10/08/20 18:42 10/08/20 18:09 - Laboratory Results Critical Laboratory Results Reviewed: No Critical Results - Radiology Results Critical Radiology Results Reviewed: No Critical Results Procedures - Laceration/Wound Repair Right Proximal Hand Time completed: 19:27 Wound length (cm): 3 Wound's Depth, Shape: Irregular, Stellate, Contused tissue Laceration pre-procedure: Sterile PPE donned, Sterile drapes applied, Other - Saline Anesthetic type: 1% Lidocaine w/epi Volume Anesthetic (mLs): 2 Wound explored: Clean, No foreign body removed Irrigated w/ Saline (mLs): 250 Wound Repaired With: Sutures Suture Size/Type: Vicryl, 4:0 Number of Sutures: 6 Layer Closure?: No Post-procedure wound care: Sterile dressing applied, Other Post-procedure NV exam normal: Yes Complications: No Discharge - Discharge Clinical Impression: Laceration of hand, right Qualifiers: Encounter type: initial encounter Foreign body presence: without foreign body Qualified Code(s): S61.411A - Laceration without foreign body of right hand, initial encounter Hypertension Qualifiers: Hypertension type: essential hypertension Qualified Code(s): I10 - Essential (primary) hypertension Condition: Stable Disposition: HOME, SELF-CARE Additional Instructions: Keep the wound is clean and dry as possible, sutures will dissolve over 7 to 10 days. Cool compresses to the area to help with bruising. Take ibuprofen or Tylenol for pain. Follow-up with your primary care provider for reevaluation of the wound area in 3 to 5 days call for appointment. It was noted that you were mildly hypertensive with an elevated blood pressure today. Please have this rechecked by your primary care provider Referrals: MATTHEW CABRERA DO [Primary Care Provider] - Follow up as needed
[2020-10-08 19:46] VITALS: BP 158/84
== END 2020-10-08 20:33 | disposition home or self-care (01) ==
LOC: ER 17:59
DX: S61.411A Laceration without foreign body of right hand, initial encounter (principal); W01.119A Fall on same level from slipping, tripping and stumbling with subsequent striking against unspecified sharp object, initial encounter; Y93.01 Activity, walking, marching and hiking; I10 Essential (primary) hypertension; Z23 Encounter for immunization; Z91.040 Latex allergy status; Z88.0 Allergy status to penicillin; Z88.2 Allergy status to sulfonamides
CPT/HCPCS: 99283; 90471; 73120; 90715; 12042; J3490